=== PATIENT | female | born 1985 | race Caucasian/White ===

== ENCOUNTER 2016-07-30 12:12 | Inpatient (IN) | payer MEDICAID ==
[~2016-07-30] VITALS: Ht 175.3 cm; Wt 102.1 kg
[~2016-07-30 12:12] MED LIST: HYDR-2601 PO; LANS15CA21 PO; LORA2TAB10 PO; MES400T PO
[2016-07-30 12:57] LABS: Basophils # (auto) 0.1 uL; Basophils % (auto) 0.6 % (0.0-2.0); Eosinophils # (auto) 0.2 uL; Eosinophils % (auto) 1.7 % (0.0-7.0); Hematocrit 37.3 % (36.0-46.0); Hemoglobin 12.8 g/dL (12.2-16.2); Lymphocytes # (auto) 1.8 uL; Lymphocytes % (auto) 18.4 % (10.0-50.0); Mean Corpuscular Hemoglobin 31.3 pg (28.0-32.0); Mean Corpuscular Hgb Conc. 34.2 g/dL (32.0-36.0); Mean Corpuscular Volume 91.3 fL (80.0-100.0); Mean Platelet Volume 8.5 fL (7.4-10.4); Monocytes # (auto) 0.9 uL; Monocytes % (auto) 9.1 % (0.0-12.0); Neutrophils # (auto) 6.9 uL; Neutrophils % (auto) 70.2 % (37.0-80.0); Platelet Count (auto) 307 10^3/uL (140-450); Red Cell Distribution Width 13.4 % (11.6-16.0); White Blood Cell 9.9 10^3/uL (4.4-10.8)
[2016-07-30 13:29] LABS: Albumin 3.5 g/dL (3.4-5.0); Alkaline Phosphatase 52 U/L (45-117); Anion Gap 11 (5-15); Aspartate Aminotransferase 22 U/L (15-37); BUN/Creatinine Ratio 16.9; Bilirubin, Total 0.2 mg/dL (0.2-1.0); Blood Urea Nitrogen 13 mg/dL (7-18); Calcium 8.3 mg/dL (8.5-10.1); Carbon Dioxide 26 mmol/L (21-32); Chloride 106 mmol/L (98-107); GFR African American 111 mL/min; GFR Non-African American 92 mL/min; Glucose 88 mg/dL (74-106); Magnesium 2.2 mg/dL (1.6-2.6); Potassium 3.6 mmol/L (3.5-5.1); Sodium 143 mmol/L (136-145); Total Protein 6.9 g/dL (6.4-8.2)
[2016-07-30] MEDS ORDERED: SODIUM CHLORIDE 0.9% 1,000 ML IV ONE (18:00)
[2016-07-30] MEDS ORDERED: PROMETHAZINE HCL 6.25 MG/5 ML ORAL SYRUP PO ONE (18:00)
[2016-07-30] MEDS ORDERED: diphenhdrAMINE HCL 50 MG/1 ML VL IV ONE (18:00)
[2016-07-30] MEDS ORDERED: HYDROmorphone HCL 2 MG/ML VL IV ONE ×2 (18:00→20:15)
[2016-07-30] MEDS ORDERED: CIPROFLOXACIN 400MG/200ML 200 ML IV ONE (18:00)
[2016-07-30] MEDS ORDERED: FAMOTIDINE (10MG/ML) 2ML VL IV ONE (19:15)
[2016-07-30] MEDS ORDERED: PANTOPRAZOLE SODIUM 40 MG/10 ML VIAL IV ONE (19:15)
[2016-07-30] MEDS ORDERED: ACETAMINOPHEN 325 MG TAB PO ONE ×2 (19:29→19:30)
[2016-07-30] MEDS ORDERED: TEMAZEPAM 15 MG CAP PO PRN (19:30)
[2016-07-30] MEDS ORDERED: HYDROcodone-ACET 5/325MG TAB PO PRN (19:30)
[2016-07-30] MEDS ORDERED: ACETAMINOPHEN 325 MG TAB PO PRN (19:30)
[2016-07-30] MEDS ORDERED: NITROGLYCERIN 0.4 MG SL TAB SL PRN (19:30)
[2016-07-30] MEDS: HYDROmorphone HCL 2 MG/ML VL IV PRN (20:05)
[2016-07-30 20:34] LABS: B-Type Natriuretic Peptide 47.05 pg/mL (0-100)
[2016-07-30 20:38] LABS: Temperature: 23.3 C (20.0-25.0)
[2016-07-30 20:47] LABS: Urine Bilirubin Negative (Negative); Urine Blood Negative /uL (Negative); Urine Color Yellow (Yellow); Urine Glucose Normal (Normal); Urine Ketone Negative (Negative); Urine Nitrite Negative (Negative); Urine RBC <1 /hpf (0 - 4); Urine Squamous Epithelial Cell FEW /hpf (<5); Urine Urobilinogen Normal (Negative); Urine pH 7.5 (5.0-8.0)
[2016-07-30] MEDS: MULTIPLE VITAMIN TAB PO SCH (20:54)
[2016-07-30] MEDS: SODIUM CHLORIDE 0.9% 1,000 ML IV SCH (20:54)
[2016-07-30] MEDS: MESALAMINE 400mg Delayed Release Cap PO SCH (22:00)
[2016-07-30 22:24] VITALS: BP 109/78
[2016-07-30] MEDS ORDERED: diphenhdrAMINE HCL 25 MG CAP PO ONE (22:45)
[2016-07-30] MEDS ORDERED: FLUO20CA19 PO (23:38)
[2016-07-30] MEDS ORDERED: LEVO112T4 PO (23:38)
[2016-07-30] MEDS ORDERED: ZOLP10TA PO (23:38)
[2016-07-30] MEDS ORDERED: DIPH25CA66 PO (23:38)
[2016-07-30] MEDS ORDERED: CLON2TAB3 PO (23:38)
[2016-07-30] MEDS ORDERED: [UNRECOGNIZED DRUG - CODE] GT (23:38)
[2016-07-31] VITALS (7 sets, daily range): BP systolic 100–114; BP diastolic 55–71
[2016-07-31] MEDS: HYDROmorphone HCL 2 MG/ML VL IV PRN ×4 (01:26→20:26)
[2016-07-31] MEDS: ONDANSETRON HCL 4 MG/2 ML VIAL IV PRN ×3 (01:26→16:22)
[2016-07-31] MEDS: LORazepam 0.5 MG TAB PO PRN (02:42)
[2016-07-31] MEDS: SODIUM CHLORIDE 0.9% 1,000 ML IV SCH ×3 (03:50→19:30)
[2016-07-31] MEDS: MESALAMINE 400mg Delayed Release Cap PO SCH ×3 (06:00→22:00)
[2016-07-31 06:28] LABS: Basophils # (auto) 0 uL; Eosinophils # (auto) 0.3 uL; Eosinophils % (auto) 5.2 % (0.0-7.0); Hematocrit 35.2 % (36.0-46.0); Hemoglobin 11.9 g/dL (12.2-16.2); Lymphocytes # (auto) 1.8 uL; Lymphocytes % (auto) 35.7 % (10.0-50.0); Mean Corpuscular Hemoglobin 31.1 pg (28.0-32.0); Mean Corpuscular Hgb Conc. 33.7 g/dL (32.0-36.0); Mean Corpuscular Volume 92.3 fL (80.0-100.0); Mean Platelet Volume 8.6 fL (7.4-10.4); Monocytes # (auto) 0.6 uL; Neutrophils # (auto) 2.2 uL; Neutrophils % (auto) 45.1 % (37.0-80.0); Platelet Count (auto) 254 10^3/uL (140-450); Red Cell Distribution Width 13.6 % (11.6-16.0); White Blood Cell 4.9 10^3/uL (4.4-10.8)
[2016-07-31 06:43] LABS: INR 1.05 (0.9-1.15); Prothrombin Time 11.3 sec (9.37-12.3)
[2016-07-31 07:00] LABS: Albumin 2.8 g/dL (3.4-5.0); BUN/Creatinine Ratio 11.7; Bilirubin, Total 0.3 mg/dL (0.2-1.0); Calcium 7.8 mg/dL (8.5-10.1); Potassium 3.8 mmol/L (3.5-5.1); Total Protein 6.1 g/dL (6.4-8.2)
[2016-07-31] MEDS ORDERED: FAMOTIDINE (10MG/ML) 2ML VL IV SCH (10:00)
[2016-07-31] MEDS: MULTIPLE VITAMIN TAB PO SCH (10:04)
[2016-07-31] MEDS: LEVOFLOXACIN 500MG 100 ML IV SCH (10:04)
[2016-07-31] MEDS: PANTOPRAZOLE SODIUM 40 MG/10 ML VIAL IV SCH (10:05)
[2016-07-31] MEDS ORDERED: PROCHLORPERAZINE EDISYLATE 5 MG/ML 2ML VIAL IV ONE (11:45)
[2016-07-31] MEDS: PROMETHAZINE HCL 6.25 MG/5 ML ORAL SYRUP PO PRN ×2 (12:52→20:03)
[2016-07-31] MEDS: diphenhdrAMINE HCL 50 MG/1 ML VL IV PRN ×2 (16:22→22:28)
[2016-08-01 05:30] VITALS: BP 102/60
[2016-08-01] MEDS: diphenhdrAMINE HCL 50 MG/1 ML VL IV PRN ×3 (05:38→20:16)
[2016-08-01] MEDS: SODIUM CHLORIDE 0.9% 1,000 ML IV SCH ×2 (05:38→17:01)
[2016-08-01] MEDS: MESALAMINE 400mg Delayed Release Cap PO SCH ×3 (06:00→21:35)
[2016-08-01] MEDS: LEVOTHYROXINE SODIUM 112 MCG TAB PO SCH (06:22)
[2016-08-01 06:40] LABS: Basophils # (auto) 0 uL; Basophils % (auto) 0.9 % (0.0-2.0); Eosinophils # (auto) 0.3 uL; Eosinophils % (auto) 7.1 % (0.0-7.0); Hematocrit 36.5 % (36.0-46.0); Hemoglobin 12.2 g/dL (12.2-16.2); Lymphocytes # (auto) 1.9 uL; Lymphocytes % (auto) 39.1 % (10.0-50.0); Mean Corpuscular Hemoglobin 31.1 pg (28.0-32.0); Mean Corpuscular Hgb Conc. 33.4 g/dL (32.0-36.0); Mean Corpuscular Volume 92.9 fL (80.0-100.0); Mean Platelet Volume 8.9 fL (7.4-10.4); Monocytes # (auto) 0.7 uL; Monocytes % (auto) 14.6 % (0.0-12.0); Neutrophils # (auto) 1.9 uL; Neutrophils % (auto) 38.3 % (37.0-80.0); Platelet Count (auto) 279 10^3/uL (140-450); Red Cell Distribution Width 13.4 % (11.6-16.0); White Blood Cell 4.9 10^3/uL (4.4-10.8)
[2016-08-01 06:50] LABS: BUN/Creatinine Ratio 11.4; Calcium 7.7 mg/dL (8.5-10.1)
[2016-08-01] MEDS: HYDROmorphone HCL 2 MG/ML VL IV PRN ×3 (07:03→20:16)
[2016-08-01 08:06] LABS: Rheumatoid Arthritis Factor <10.0 IU/mL (0.0-13.9)
[2016-08-01 08:06] LABS: Thyroid Peroxidase (TPO) Ab 7 IU/mL (0-34)
[2016-08-01 08:18] VITALS: BP 127/69
[2016-08-01] MEDS: LORazepam 0.5 MG TAB PO PRN (08:23)
[2016-08-01] MEDS: PROMETHAZINE HCL 6.25 MG/5 ML ORAL SYRUP PO PRN ×2 (08:25→20:16)
[2016-08-01] MEDS: LEVOFLOXACIN 500MG 100 ML IV SCH (10:11)
[2016-08-01] MEDS: MULTIPLE VITAMIN TAB PO SCH (10:12)
[2016-08-01] MEDS: FLUoxetine HCL 20 MG CAP PO SCH (10:12)
[2016-08-01] MEDS: PANTOPRAZOLE SODIUM 40 MG/10 ML VIAL IV SCH (10:12)
[2016-08-01 12:45] VITALS: BP 97/58
[2016-08-01] MEDS: ONDANSETRON HCL 4 MG/2 ML VIAL IV PRN (13:19)
[2016-08-01 17:25] VITALS: BP 102/55
[2016-08-01 17:58] VITALS: BP 102/58
[2016-08-01 18:08] LABS: Sjogren's Anti-SS-A Antibody <0.2 AI (0.0-0.9)
[2016-08-01 22:00] VITALS: BP 101/61
[2016-08-02] MEDS: HYDROmorphone HCL 2 MG/ML VL IV PRN ×3 (00:50→11:16)
[2016-08-02] MEDS: ONDANSETRON HCL 4 MG/2 ML VIAL IV PRN ×2 (01:07→11:15)
[2016-08-02] MEDS: diphenhdrAMINE HCL 50 MG/1 ML VL IV PRN (04:39)
[2016-08-02 05:00] VITALS: BP 95/46
[2016-08-02] MEDS: SODIUM CHLORIDE 0.9% 1,000 ML IV SCH (05:43)
[2016-08-02] MEDS: MESALAMINE 400mg Delayed Release Cap PO SCH ×3 (05:44→14:46)
[2016-08-02] MEDS: LEVOTHYROXINE SODIUM 112 MCG TAB PO SCH (06:38)
[2016-08-02 07:06] LABS: Anti-intermyofibrillar Ab Negative (Neg:<1:20); Anti-sarcolemma Antibody Negative (Neg:<1:20)
[2016-08-02 08:00] VITALS: BP 92/50
[2016-08-02] MEDS ORDERED: LIDOCAINE VISCOUS 2% 15ML UD ONE (08:23)
[2016-08-02] MEDS ORDERED: SODIUM CHLORIDE LOCK 10 ML ONE (08:23)
[2016-08-02] MEDS ORDERED: diphenhdrAMINE HCL 50 MG/1 ML VL ONE (08:23)
[2016-08-02] MEDS: MULTIPLE VITAMIN TAB PO SCH (08:27)
[2016-08-02] MEDS: FLUoxetine HCL 20 MG CAP PO SCH (08:27)
[2016-08-02 09:00] VITALS: BP 92/50
[2016-08-02 09:08] LABS: Aldolase 4.1 U/L (3.3-10.3)
[2016-08-02] MEDS: LEVOFLOXACIN 500MG 100 ML IV SCH (10:00)
[2016-08-02] MEDS: MIDAZOLAM HCL 5 MG/ML-1ML VIAL ONE ×3 (10:49→10:58)
[2016-08-02] MEDS: fentaNYL CITRATE 100 MCG/2 ML VL ONE ×2 (10:49→10:53)
[2016-08-02] MEDS ORDERED: PANTOPRAZOLE 40 MG TAB PO ONE (11:15)
[2016-08-02] MEDS ORDERED: ONDANSETRON HCL 4 MG/2 ML VIAL IM ONE (11:15)
[2016-08-02] MEDS ORDERED: ONDANSETRON HCL 4 MG/2 ML VIAL IV ONE (11:30)
[2016-08-02] MEDS: PROMETHAZINE HCL 6.25 MG/5 ML ORAL SYRUP PO PRN (12:20)
[2016-08-02 13:00] VITALS: BP 105/69
[2016-08-02] MEDS ORDERED: PANT40T PO (13:27)
[2016-08-02 15:23] VITALS: BP 92/50
[2016-08-02 17:00] VITALS: BP 101/65
[2016-08-02 20:06] LABS: HSV 1&2 IgM Antibody <0.91 Ratio (0.00-0.90)
[2016-08-03] MEDS ORDERED: PANTOPRAZOLE 40 MG TAB PO SCH (10:00)
== END 2016-08-02 18:20 | disposition home or self-care (01) | DRG 346 ==
LOC: ER 12:14 → TELE 12:15 → TELE-WESTW 22:12
PROVIDERS: ADMIT Internal Medicine; ATTEND Internal Medicine
PROC: 0DB68ZX Excision of Stomach, Via Natural or Artificial Opening Endoscopic, Diagnostic (ICD-10-PCS; principal; 2016-08-02 10:44)
DX: M06.9 Rheumatoid arthritis, unspecified (principal); K92.0 Hematemesis; M32.9 Systemic lupus erythematosus, unspecified; N39.0 Urinary tract infection, site not specified; E27.1 Primary adrenocortical insufficiency; K51.90 Ulcerative colitis, unspecified, without complications; L53.8 Other specified erythematous conditions; N20.0 Calculus of kidney; F41.9 Anxiety disorder, unspecified; M19.90 Unspecified osteoarthritis, unspecified site; F32.9 Major depressive disorder, single episode, unspecified; E86.0 Dehydration; E03.9 Hypothyroidism, unspecified; Z87.442 Personal history of urinary calculi; Z87.19 Personal history of other diseases of the digestive system; Z82.3 Family history of stroke; Z82.49 Family history of ischemic heart disease and other diseases of the circulatory system; Z87.440 Personal history of urinary (tract) infections; Z88.2 Allergy status to sulfonamides; Z88.8 Allergy status to other drugs, medicaments and biological substances; Z88.6 Allergy status to analgesic agent; Z88.1 Allergy status to other antibiotic agents; Z91.010 Allergy to peanuts; Z79.899 Other long term (current) drug therapy; Z80.9 Family history of malignant neoplasm, unspecified
CPT/HCPCS: 36415; 76775; 80048; 80053; 81001; 82085; 82550; 83735; 83880; 84443; 84460; 84484; 84550; 84702; 85025; 85610; 85652; 86141; 86160; 86200; 86225; 86235; 86431; 87086; 93005; 96374; 96375; 99291; C9113; J1956; J2250; J2405; J3490

== ENCOUNTER 2020-09-18 20:32 | Inpatient (IN) | payer MEDICAID ==
[~2020-09-18] VITALS: Ht 170.2 cm; Wt 81.4 kg
[~2020-09-18 20:32] MED LIST changes: +CLON-857 PO; +DIPH-515 GT; +DIPH25CA66 PO; +FLUO20CA19 PO; -LANS15CA21 PO; +LEVO112T4 PO; -LORA2TAB10 PO; -MES400T PO; +PANT40T PO; +ZOLP10TA PO
[2020-09-18 22:08] LABS: Basophils # (auto) 0.1 10 ^3/uL (0-0.2); Basophils % (auto) 1.3 % (0.0-2.0); Eosinophils # (auto) 0.1 10 ^3/uL (0-0.8); Eosinophils % (auto) 0.7 % (0.0-7.0); Hematocrit 48.6 % (36.0-46.0); Lymphocytes # (auto) 2.7 10 ^3/uL (0.4-5.4); Lymphocytes % (auto) 29.1 % (10.0-50.0); Mean Corpuscular Hemoglobin 33.8 pg (28.0-32.0); Mean Corpuscular Volume 96.7 fL (80.0-100.0); Monocytes # (auto) 0.9 10 ^3/uL (0-1.3); Neutrophils # (auto) 5.5 10 ^3/uL (1.6-8.6); Neutrophils % (auto) 58.9 % (37.0-80.0); Nucleated Red Blood Cells % 0.2 %; Platelet Count (auto) 168 10^3/uL (140-450); Red Blood Cells 5.02 10^6/uL (4.0-5.20); Red Cell Distribution Width 13.6 % (11.8-14.3); White Blood Cell 9.4 10^3/uL (4.4-10.8)
[2020-09-18 22:24] LABS: Albumin 3.1 g/dL (3.4-5.0); Calcium 7.8 mg/dL (8.5-10.1); Potassium 3.2 mmol/L (3.5-5.1)
[2020-09-18 22:31] LABS: INR 1.09 (0.9-1.15)
[2020-09-18 22:32] LABS: Bilirubin, Total 0.5 mg/dL (0.2-1.0); Total Protein 6.1 g/dL (6.4-8.2)
[2020-09-18] MEDS ORDERED: POTASSIUM EFFERVESENT TAB 25 MEQ PO ONE (23:00)
[2020-09-18] MEDS ORDERED: METOCLOPRAMIDE HCL 5MG/ml INJ 2ml VIAL IV ONE (23:00)
[2020-09-18] MEDS ORDERED: MORPHINE SULF INJ 2 MG/ML SYRINGE 1ML IV ONE (23:00)
[2020-09-19 00:03] LABS: Salicylate < 1.7 mg/dL (2.8-20.0)
[2020-09-19 00:04] LABS: Lactic Acid w/Reflex 2.3 mmol/L (0.4-2.0)
[2020-09-19 00:13] LABS: Acetaminophen < 2.0 ug/mL (10-30)
[2020-09-19] MEDS ORDERED: SODIUM CHLORIDE 0.9% 1,000 ML IV ONE (00:15)
[2020-09-19] MEDS ORDERED: FUROSEMIDE 40 MG/4 ML VIAL IV ONE (01:00)
[2020-09-19] MEDS ORDERED: POTASSIUM CHL 20MEQ/100ML 100 ML IV ONE (02:45)
[2020-09-19] MEDS ORDERED: FUROSEMIDE 20 MG/2 ML VIAL IV SCH ×2 (02:46→10:00)
[2020-09-19 07:15] VITALS: BP 125/68
[2020-09-19] MEDS ORDERED: LORazepam 2MG/ML-1ML VIAL IV PRN (09:15)
[2020-09-19] MEDS ORDERED: ALPRAZolam 0.25 MG TAB PO PRN (09:15)
[2020-09-19 09:25] LABS: Alcohol, Urine < 3.0 mg/dL (0-10); Amphetamine Screen, Urine POSITIVE (NEGATIVE); Barbiturate Scree,Urine NEGATIVE (NEGATIVE); Benzodiazephine Screen, Urine POSITIVE (NEGATIVE); Cannabinoid Screen, Urine NEGATIVE (NEGATIVE); Cocaine Screen, Urine NEGATIVE (NEGATIVE); Opiate Scree,Urine NEGATIVE (NEGATIVE); Phencyclidine Screen, Urine NEGATIVE (NEGATIVE)
== END 2020-09-19 09:12 | disposition left against medical advice (07) | DRG 204 ==
LOC: EDBD 20:32 → ER 20:33 → TELE 09-19 02:31
PROVIDERS: ADMIT Internal Medicine; ATTEND Internal Medicine
DX: R55 Syncope and collapse (principal); E87.2 Acidosis; I50.9 Heart failure, unspecified; E88.09 Other disorders of plasma-protein metabolism, not elsewhere classified; I42.2 Other hypertrophic cardiomyopathy; Z20.822 Contact with and (suspected) exposure to COVID-19; E03.9 Hypothyroidism, unspecified; E86.0 Dehydration; F17.200 Nicotine dependence, unspecified, uncomplicated; F19.20 Other psychoactive substance dependence, uncomplicated; F32.9 Major depressive disorder, single episode, unspecified; F41.9 Anxiety disorder, unspecified; F51.04 Psychophysiologic insomnia; M19.90 Unspecified osteoarthritis, unspecified site; Z53.29 Procedure and treatment not carried out because of patient's decision for other reasons; M06.9 Rheumatoid arthritis, unspecified; R56.9 Unspecified convulsions; N18.9 Chronic kidney disease, unspecified; Z80.6 Family history of leukemia; Z82.0 Family history of epilepsy and other diseases of the nervous system; Z82.3 Family history of stroke; Z82.49 Family history of ischemic heart disease and other diseases of the circulatory system; Z87.442 Personal history of urinary calculi; Z88.0 Allergy status to penicillin; Z88.2 Allergy status to sulfonamides; Z88.8 Allergy status to other drugs, medicaments and biological substances; Z88.6 Allergy status to analgesic agent
CPT/HCPCS: 36415; 71045; 80053; 80307; 80320; 80329; 83605; 83880; 84484; 84702; 85025; 85610; 87426; 93005; 96361; 96374; 96375; G0378; J3480

== ENCOUNTER 2021-01-23 10:04 | Inpatient (IN) | payer MEDICAID, OTHER ==
[~2021-01-23] VITALS: Ht 177.8 cm; Wt 99.4 kg
[2021-01-23] MEDS ORDERED: HYDROmorphone HCL 2 MG/ML VL IV ONE (11:45)
[2021-01-23] MEDS ORDERED: ONDANSETRON HCL 4 MG/2 ML VIAL IV ONE (11:45)
[2021-01-23 12:05] LABS: Albumin 3.1 g/dL (3.4-5.0); Basophils # (auto) 0.1 10 ^3/uL (0-0.2); Calcium 8.2 mg/dL (8.5-10.1); Eosinophils # (auto) 0.1 10 ^3/uL (0-0.8); Hematocrit 52.8 % (36.0-46.0); Hemoglobin 17.2 g/dL (12.2-16.2); Lymphocytes # (auto) 1.7 10 ^3/uL (0.4-5.4); Lymphocytes % (auto) 19.4 % (10.0-50.0); Mean Corpuscular Hemoglobin 32.6 pg (28.0-32.0); Mean Corpuscular Hgb Conc. 32.6 g/dL (32.0-36.0); Mean Corpuscular Volume 100.1 fL (80.0-100.0); Monocytes # (auto) 0.7 10 ^3/uL (0-1.3); Monocytes % (auto) 7.7 % (0.0-12.0); Neutrophils # (auto) 6.3 10 ^3/uL (1.6-8.6); Neutrophils % (auto) 70.9 % (37.0-80.0); Nucleated Red Blood Cells % 0.2 %; Potassium 3.2 mmol/L (3.5-5.1); Red Blood Cells 5.27 10^6/uL (4.0-5.20); Red Cell Distribution Width 14.9 % (11.8-14.3); White Blood Cell 8.9 10^3/uL (4.4-10.8)
[2021-01-23 12:23] LABS: BUN/Creatinine Ratio 23.2; Bilirubin, Total 0.7 mg/dL (0.2-1.0); Total Protein 6.3 g/dL (6.4-8.2)
[2021-01-23] MEDS ORDERED: POTASSIUM CHL 20MEQ/100ML 100 ML IV ONE (13:00)
[2021-01-23] MEDS: CARVEDILOL 3.125 MG TAB PO SCH ×2 (13:30→22:07)
[2021-01-23] MEDS ORDERED: NITROGLYCERIN 0.4 MG SL TAB SL PRN (13:30)
[2021-01-23] MEDS ORDERED: POTASSIUM EFFERVESENT TAB 25 MEQ PO ONE (13:30)
[2021-01-23] MEDS ORDERED: FUROSEMIDE 20 MG/2 ML VIAL IV ONE (13:30)
[2021-01-23] MEDS: LORazepam 2MG/ML-1ML VIAL IV PRN (14:11)
[2021-01-23] MEDS ORDERED: IOHEXOL 350 MG/ML 100ML IJ ONE (14:38)
[2021-01-23 14:49] LABS: Urine Bacteria MOD /hpf (None Seen); Urine Blood Negative /uL (Negative); Urine Hyaline Cast FEW /lpf (0 - 2); Urine Mucus FEW (None Seen); Urine Specific Gravity 1.023 (1.001-1.035); Urine WBC 7 /hpf (0 - 5)
[2021-01-23 15:23] LABS: Amphetamine Screen, Urine POSITIVE (NEGATIVE); Barbiturate Scree,Urine NEGATIVE (NEGATIVE); Benzodiazephine Screen, Urine NEGATIVE (NEGATIVE); Cannabinoid Screen, Urine NEGATIVE (NEGATIVE); Cocaine Screen, Urine NEGATIVE (NEGATIVE); Opiate Scree,Urine NEGATIVE (NEGATIVE); Phencyclidine Screen, Urine NEGATIVE (NEGATIVE)
[2021-01-23] MEDS: HYDROmorphone HCL 2 MG/ML VL IV PRN ×2 (16:10→23:41)
[2021-01-23] MEDS: ONDANSETRON HCL 4 MG/2 ML VIAL IV PRN (16:10)
[2021-01-23] MEDS ORDERED: DOBUTamine 1000MCG/ML 250 ML IV SCH (17:00)
[2021-01-23] MEDS: DOBUTamine 1000MCG/ML 250 ML IV SCH (17:43)
[2021-01-24 01:20] VITALS: BP 101/67
[2021-01-24] MEDS ORDERED: LOSA25TA38 PO (02:22)
[2021-01-24] MEDS ORDERED: FURO1TAB31 PO (02:23)
[2021-01-24] MEDS ORDERED: POTA10TA51 PO (02:23)
[2021-01-24 05:00] VITALS: BP 97/58
[2021-01-24 05:47] LABS: Basophils # (auto) 0.1 10 ^3/uL (0-0.2); Eosinophils # (auto) 0 10 ^3/uL (0-0.8); Mean Corpuscular Volume 102.1 fL (80.0-100.0); Monocytes # (auto) 0.9 10 ^3/uL (0-1.3)
[2021-01-24 05:51] LABS: Eosinophils % (auto) 0.2 % (0.0-7.0); Hematocrit 49.7 % (36.0-46.0); Hemoglobin 16.6 g/dL (12.2-16.2); Lymphocytes # (auto) 1.7 10 ^3/uL (0.4-5.4); Lymphocytes % (auto) 17.9 % (10.0-50.0); Mean Corpuscular Hemoglobin 34.1 pg (28.0-32.0); Mean Corpuscular Hgb Conc. 33.4 g/dL (32.0-36.0); Monocytes % (auto) 9.2 % (0.0-12.0); Neutrophils # (auto) 6.8 10 ^3/uL (1.6-8.6); Neutrophils % (auto) 71.7 % (37.0-80.0); Nucleated Red Blood Cells % 0.3 %; Red Blood Cells 4.87 10^6/uL (4.0-5.20); Red Cell Distribution Width 14.8 % (11.8-14.3); White Blood Cell 9.4 10^3/uL (4.4-10.8)
[2021-01-24 06:12] LABS: Potassium 4.4 mmol/L (3.5-5.1)
[2021-01-24 06:26] LABS: Calcium 8.3 mg/dL (8.5-10.1)
[2021-01-24 06:27] LABS: Albumin 3.1 g/dL (3.4-5.0)
[2021-01-24] MEDS: DOBUTamine 1000MCG/ML 250 ML IV SCH (07:31)
[2021-01-24] MEDS ORDERED: REGADENOSON 0.4 MG/5 ML SYRG IV ONE (08:00)
[2021-01-24 09:00] VITALS: BP 97/65
[2021-01-24] MEDS: CARVEDILOL 3.125 MG TAB PO SCH ×2 (10:00→22:05)
[2021-01-24] MEDS: RAMIPRIL 2.5 MG CAP PO SCH (10:00)
[2021-01-24] MEDS ORDERED: FUROSEMIDE 20 MG/2 ML VIAL IV SCH (10:00)
[2021-01-24] MEDS: HYDROmorphone HCL 2 MG/ML VL IV PRN ×3 (10:03→22:05)
[2021-01-24] MEDS: THIAMINE HCL 100 MG TAB PO SCH (10:04)
[2021-01-24] MEDS: FOLIC ACID 1 MG TAB PO SCH (10:04)
[2021-01-24] MEDS: DAPAGLIFLOZIN 5 MG TAB PO SCH (10:05)
[2021-01-24] MEDS: ASPirin-EC 81 mg tab PO SCH (10:05)
[2021-01-24] MEDS: MULTIPLE VITAMIN TAB PO SCH (10:06)
[2021-01-24] MEDS: ONDANSETRON HCL 4 MG/2 ML VIAL IV PRN ×3 (10:46→22:05)
[2021-01-24 13:00] VITALS: BP 107/72
[2021-01-24 17:00] VITALS: BP 103/73
[2021-01-24] MEDS: LORazepam 2MG/ML-1ML VIAL IV PRN (17:26)
[2021-01-24] MEDS: FUROSEMIDE 20 MG/2 ML VIAL IV SCH (17:50)
[2021-01-24 22:00] VITALS: BP 115/60
[2021-01-25] MEDS: FUROSEMIDE 20 MG/2 ML VIAL IV SCH ×2 (04:42→17:21)
[2021-01-25 05:00] VITALS: BP 95/71
[2021-01-25] MEDS: ONDANSETRON HCL 4 MG/2 ML VIAL IV PRN (05:32)
[2021-01-25] MEDS: HYDROmorphone HCL 2 MG/ML VL IV PRN ×3 (08:07→22:31)
[2021-01-25] MEDS: LORazepam 2MG/ML-1ML VIAL IV PRN ×2 (08:07→17:43)
[2021-01-25 09:00] VITALS: BP 115/74
[2021-01-25] MEDS: THIAMINE HCL 100 MG TAB PO SCH (09:41)
[2021-01-25] MEDS: FOLIC ACID 1 MG TAB PO SCH (09:41)
[2021-01-25] MEDS: DAPAGLIFLOZIN 5 MG TAB PO SCH (09:42)
[2021-01-25] MEDS: RAMIPRIL 2.5 MG CAP PO SCH (09:42)
[2021-01-25] MEDS: MULTIPLE VITAMIN TAB PO SCH (09:42)
[2021-01-25] MEDS: ASPirin-EC 81 mg tab PO SCH (09:42)
[2021-01-25] MEDS: CARVEDILOL 3.125 MG TAB PO SCH ×2 (09:42→21:50)
[2021-01-25 12:58] VITALS: BP 99/68
[2021-01-25 17:00] VITALS: BP 128/106
[2021-01-25 22:00] VITALS: BP 93/61
[2021-01-25] MEDS ORDERED: THROAT LOZENGES(CEPASTAT) MT PRN (22:30)
[2021-01-26] MEDS: LORazepam 2MG/ML-1ML VIAL IV PRN ×3 (02:05→21:13)
[2021-01-26 05:00] VITALS: BP 91/66
[2021-01-26] MEDS: FUROSEMIDE 20 MG/2 ML VIAL IV SCH ×2 (06:00→17:41)
[2021-01-26] MEDS: HYDROmorphone HCL 2 MG/ML VL IV PRN ×3 (08:22→19:06)
[2021-01-26 09:00] VITALS: BP 104/58
[2021-01-26] MEDS: FOLIC ACID 1 MG TAB PO SCH (10:15)
[2021-01-26] MEDS: CARVEDILOL 3.125 MG TAB PO SCH ×2 (10:16→21:13)
[2021-01-26] MEDS: MULTIPLE VITAMIN TAB PO SCH (10:16)
[2021-01-26] MEDS: RAMIPRIL 2.5 MG CAP PO SCH (10:16)
[2021-01-26] MEDS: ASPirin-EC 81 mg tab PO SCH (10:17)
[2021-01-26] MEDS: DAPAGLIFLOZIN 5 MG TAB PO SCH (10:17)
[2021-01-26] MEDS: THIAMINE HCL 100 MG TAB PO SCH (10:17)
[2021-01-26 12:00] VITALS: BP 113/79
[2021-01-26 16:00] VITALS: BP 110/68
[2021-01-26 22:00] VITALS: BP 101/54
[2021-01-27] MEDS: HYDROmorphone HCL 2 MG/ML VL IV PRN (00:26)
[2021-01-27 05:00] VITALS: BP 100/71
[2021-01-27] MEDS: LORazepam 2MG/ML-1ML VIAL IV PRN (05:06)
[2021-01-27] MEDS: FUROSEMIDE 20 MG/2 ML VIAL IV SCH (05:06)
[2021-01-27 09:00] VITALS: BP 99/70
[2021-01-27] MEDS: ASPirin-EC 81 mg tab PO SCH (09:57)
[2021-01-27] MEDS: MULTIPLE VITAMIN TAB PO SCH (09:57)
[2021-01-27] MEDS: FOLIC ACID 1 MG TAB PO SCH (09:59)
[2021-01-27] MEDS: DAPAGLIFLOZIN 5 MG TAB PO SCH (09:59)
[2021-01-27] MEDS: THIAMINE HCL 100 MG TAB PO SCH (10:00)
[2021-01-27] MEDS: CARVEDILOL 3.125 MG TAB PO SCH (10:05)
[2021-01-27] MEDS: RAMIPRIL 2.5 MG CAP PO SCH (10:10)
[2021-01-27 10:31] VITALS: BP 129/80
== END 2021-01-27 14:40 | disposition home or self-care (01) | DRG 291 ==
LOC: ER 10:04 → EDBD 10:04 → TELE 13:26 → TELE-WESTW 23:24
PROVIDERS: ADMIT Nurse Practitioner Acute Care; ATTEND Family Medicine
PROC: 05HB33Z Insertion of Infusion Device into Right Basilic Vein, Percutaneous Approach (ICD-10-PCS; principal; 2021-01-23)
PROC: B54MZZA Ultrasonography of Right Upper Extremity Veins, Guidance (ICD-10-PCS; 2021-01-23)
DX: I11.0 Hypertensive heart disease with heart failure (principal); I50.43 Acute on chronic combined systolic (congestive) and diastolic (congestive) heart failure; N17.0 Acute kidney failure with tubular necrosis; J96.01 Acute respiratory failure with hypoxia; R04.2 Hemoptysis; I42.2 Other hypertrophic cardiomyopathy; E87.6 Hypokalemia; M32.9 Systemic lupus erythematosus, unspecified; E03.9 Hypothyroidism, unspecified; I27.21 Secondary pulmonary arterial hypertension; F17.210 Nicotine dependence, cigarettes, uncomplicated; F32.A Depression, unspecified; F41.9 Anxiety disorder, unspecified; K21.9 Gastro-esophageal reflux disease without esophagitis; Z20.822 Contact with and (suspected) exposure to COVID-19; R79.89 Other specified abnormal findings of blood chemistry; R94.31 Abnormal electrocardiogram [ECG] [EKG]; F19.10 Other psychoactive substance abuse, uncomplicated; R56.9 Unspecified convulsions; Z80.6 Family history of leukemia; Z79.899 Other long term (current) drug therapy; Z82.0 Family history of epilepsy and other diseases of the nervous system; Z82.3 Family history of stroke; Z82.49 Family history of ischemic heart disease and other diseases of the circulatory system; Z87.442 Personal history of urinary calculi; Z71.51 Drug abuse counseling and surveillance of drug abuser; Z88.8 Allergy status to other drugs, medicaments and biological substances; Z88.1 Allergy status to other antibiotic agents; Z88.5 Allergy status to narcotic agent; Z91.010 Allergy to peanuts; Z88.0 Allergy status to penicillin; Z91.013 Allergy to seafood
CPT/HCPCS: 36415; 36600; 71045; 71250; 71275; 74176; 76705; 80053; 80307; 81001; 81025; 82805; 83036; 83605; 83735; 83880; 84439; 84443; 84484; 85025; 85379; 87081; 87426; 93005; 93306; 93970; 96365; 96375; 96376; 99291; G0378; J2405; J3480

== ENCOUNTER 2022-08-23 02:53 | Emergency (ER) | payer MEDICAID, OTHER ==
[~2022-08-23] VITALS: Ht 165.1 cm; Wt 72.0 kg
[~2022-08-23 02:53] MED LIST changes: +FURO1TAB31 PO; +LOSA25TA38 PO; +POTA10TA51 PO
[2022-08-23 03:45] LABS: Basophils # (auto) 0.1 10 ^3/uL (0-0.2); Eosinophils # (auto) 0.1 10 ^3/uL (0-0.8); Eosinophils % (auto) 1.2 % (0.0-7.0); Lymphocytes % (auto) 19.9 % (10.0-50.0); Monocytes # (auto) 0.7 10 ^3/uL (0-1.3)
[2022-08-23 03:47] LABS: Basophils % (auto) 1.3 % (0.0-2.0); Hematocrit 52.8 % (36.0-46.0); Hemoglobin 18.1 g/dL (12.2-16.2); Lymphocytes # (auto) 1.8 10 ^3/uL (0.4-5.4); Mean Corpuscular Hemoglobin 33.6 pg (28.0-32.0); Mean Corpuscular Hgb Conc. 34.3 g/dL (32.0-36.0); Mean Corpuscular Volume 97.7 fL (80.0-100.0); Monocytes % (auto) 7.9 % (0.0-12.0); Neutrophils # (auto) 6.2 10 ^3/uL (1.6-8.6); Neutrophils % (auto) 69.7 % (37.0-80.0); Nucleated Red Blood Cells % 0.1 %; Red Cell Distribution Width 16.9 % (11.8-14.3); White Blood Cell 8.9 10^3/uL (4.4-10.8)
[2022-08-23 04:11] LABS: Albumin 3.6 g/dL (3.4-5.0); BUN/Creatinine Ratio 13.2 (10.0-20.0); Calcium 9.5 mg/dL (8.5-10.1); Potassium 3.3 mmol/L (3.5-5.1)
[2022-08-23 04:14] LABS: Bilirubin, Total 0.2 mg/dL (0.2-1.0); Total Protein 8.2 g/dL (6.4-8.2)
[2022-08-23 04:31] LABS: Partial Thromboplastin Time 32.9 sec (24.6-33.4)
[2022-08-23 06:15] LABS: INR 1.03 (0.9-1.15)
[2022-08-23 07:52] VITALS: BP 103/54
== END 2022-08-23 07:57 | disposition home or self-care (01) ==
LOC: EDBD 02:53 → ER 02:53
DX: R07.89 Other chest pain (principal); Z79.899 Other long term (current) drug therapy
CPT/HCPCS: 36415; 71045; 80053; 83735; 83880; 84484; 85025; 85610; 85730; 93005